=== PATIENT | male | born 1995 | race Caucasian/White ===

== ENCOUNTER 2018-11-30 13:48 | Emergency (ER) | payer SELFPAY ==
[~2018-11-30] VITALS: Ht 180.3 cm; Wt 109.8 kg
[2018-11-30 14:00] VITALS: Ht 180.3 cm; Wt 109.8 kg
[2018-11-30 17:21] LABS: BASOPHIL % 0.5 % (0-2); PLATELET COUNT 241 x10^3mcL (130-400); RED CELL DISTRIBUTION WIDTH 12.3 % (11.5-14.5)
[2018-11-30 17:45] LABS: CALCIUM 8.3 mg/dL (8.5-10.1); CARBON DIOXIDE 20.6 mmol/L (21-32); CHLORIDE SERUM 99 mmol/L (98-107); CREATININE SERUM 0.9 mg/dL (0.7-1.3); GFR1 > 60 mL/min; GLUCOSE SERUM 87 mg/dL (74-106); POTASSIUM SERUM 3.5 mmol/L (3.5-5.1); SODIUM SERUM 137 mmol/L (136-145)
[2018-11-30 17:53] LABS: ALBUMIN 3.4 g/dL (3.4-5.0); ALKALINE PHOSPHATASE 41 U/L (46-116); ALT/SGPT 22 U/L (16-63); AMYLASE 35 U/L (25-115); AST/SGOT 18 U/L (15-37); BILIRUBIN TOTAL 1.4 mg/dL (0.20-1.00); LIPASE 110 IU/L (73-393)
[2018-11-30 17:56] LABS: TOTAL PROTEIN, SERUM 8.7 g/dL (6.4-8.2)
[2018-11-30 21:39] VITALS: BP 139/94
== END 2018-11-30 21:39 | disposition home or self-care (01) ==
LOC: ED 13:48
PROVIDERS: Student in an Organized Health Care Education/Training Program
DX: E86.0 Dehydration (principal); K52.9 Noninfective gastroenteritis and colitis, unspecified; R11.10 Vomiting, unspecified
CPT/HCPCS: J2270; J2405; J7030; Q0092